=== PATIENT | male | born 1965 | race Caucasian/White ===

== ENCOUNTER → 2019-02-21 | Outpatient (CLI) | payer OTHER ==
[~2019-02-21] MED LIST: IOPAMIDOL 370 MG/ML 200 ML INFUS..BTL INJ ONE; SODIUM CHLORIDE 0.9% 100 ML 100 ML ONE
[2019-02-21 09:00] LABS: CREATININE, SERUM 1.3 mg/dL (0.72-1.25)
--- NOTE | 2019-02-21 10:04 | Diagnostic Imaging Report ---
EXAM: CT Chest with contrast- Pulmonary Embolism Protocol INDICATION: Chest pain, shortness of breath. COMPARISON: None TECHNIQUE: Chest was scanned utilizing a multidetector helical scanner from the lung apex through the level of the diaphragm after administration of IV contrast. Thin section reconstructions were obtained with special concentration on the pulmonary arteries. Coronal and sagittal reformations were obtained. Pulmonary embolism protocol was performed. IV CONTRAST: 100 cc of Isovue 370 RADIATION DOSE: Total DLP: 662.5 mGy*cm Dose modulation, iterative reconstruction, and/or weight based adjustment of the mA/kV was utilized to reduce the radiation dose to as low as reasonably achievable. COMPLICATIONS: None FINDINGS: LINES/ TUBES: None. PULMONARY ARTERIES: Exam is somewhat limited secondary to contrast bolus timing. No filling defect is identified within the pulmonary arteries to the segmental level. Apparent filling defects within the segmental left lower lobe branches are likely artifactual rather than emboli (series 2, images 56 through 59)s. Main pulmonary artery measures 3.1 cm in diameter. LUNGS AND AIRWAYS: The central airways are patent. No evidence of pneumonia or pulmonary edema. Patchy dependent atelectasis. Mild biapical pleural-parenchymal opacity, suggestive of prior granulomatous disease. Calcified granuloma in the left lower lobe. PLEURA: The pleural spaces are clear. HEART AND MEDIASTINUM: The thyroid gland is normal. No mediastinal, hilar or axillary lymphadenopathy. Calcified mediastinal lymph nodes. The heart is normal in size.. There is no pericardial effusion. Small hiatal hernia. UPPER ABDOMEN: Limited contrast-enhanced views of the upper abdomen. Reflux of contrast into the IVC may represent right heart dysfunction. BONES: Mild age indeterminate anterior loss of vertebral body heights at T7, T8, T9. SOFT TISSUES: Unremarkable. IMPRESSION: Somewhat limited examination secondary to contrast bolus timing. No evidence of segmental pulmonary embolism. Apparent filling defects within the segmental left lower lobe branches are likely artifactual rather than emboli. Mild age indeterminate anterior loss of vertebral body heights at T7, T8, T9. Signed by: Dr. Mikey Petersen MD on 02/21/2019 10:01 AM
== END ==
LOC: CT 07:36
PROVIDERS: ATTEND Internal Medicine Interventional Cardiology
DX: R06.02 Shortness of breath (principal); R07.9 Chest pain, unspecified; I26.99 Other pulmonary embolism without acute cor pulmonale
CPT/HCPCS: 36415; 71260; 82565; 84520; Q9967

== ENCOUNTER → 2022-03-25 | Day surgery (SDC) | payer OTHER ==
[~2022-03-25] MED LIST changes: +BENICAR20 MG PO; +GEMFIBROZIL600 MG PO; +GLYCOPYRROLATE INJ 0.2 MG/ML VIAL ONE; +HYOSCYAMINE SULFATE 0.5 MG/ML INJ ONE; +IBUPROFEN200 MG PO; -IOPAMIDOL 370 MG/ML 200 ML INFUS..BTL INJ ONE; +LIDOCAINE HCL 2% LOCAL INJ 5 ML SDV VIAL INJ ONE; +MIDAZOLAM HCL 2 MG/2 ML VIAL ONE; +MULTI-VITAMIN1 EACH PO; +NEXIUM OTC PO; +PROPOFOL IV EMULSION 10 MG/ML 20 ML VIAL ONE; +SIMETHICONE 40 MG/0.6 ML BTL ONE; -SODIUM CHLORIDE 0.9% 100 ML 100 ML ONE; +TESTOSTERO200 MG/1 M INJ
[2022-03-25 13:35] VITALS: BP 121/86
== END | disposition home or self-care (01) ==
LOC: OR 11:04
PROVIDERS: ATTEND Internal Medicine Gastroenterology
DX: D12.0 Benign neoplasm of cecum (principal); K21.9 Gastro-esophageal reflux disease without esophagitis; K64.8 Other hemorrhoids; I10 Essential (primary) hypertension; R06.83 Snoring; Z68.36 Body mass index [BMI] 36.0-36.9, adult; Z86.16 Personal history of COVID-19; E78.00 Pure hypercholesterolemia, unspecified; Z01.810 Encounter for preprocedural cardiovascular examination; Z01.812 Encounter for preprocedural laboratory examination; Z20.822 Contact with and (suspected) exposure to COVID-19
CPT/HCPCS: 0223U; 36415; 45380; 93005; J1980; J2001; J2250; J2704; 45378

== ENCOUNTER 2022-09-16 11:07 | Inpatient (IN) | payer OTHER ==
[~2022-09-16] VITALS: Ht 175.3 cm; Wt 108.9 kg
[~2022-09-16 11:07] MED LIST changes: -GLYCOPYRROLATE INJ 0.2 MG/ML VIAL ONE; -HYOSCYAMINE SULFATE 0.5 MG/ML INJ ONE; -LIDOCAINE HCL 2% LOCAL INJ 5 ML SDV VIAL INJ ONE; -MIDAZOLAM HCL 2 MG/2 ML VIAL ONE; -PROPOFOL IV EMULSION 10 MG/ML 20 ML VIAL ONE; -SIMETHICONE 40 MG/0.6 ML BTL ONE
[2022-09-16] MEDS ORDERED: DESFLURANE 240 ML BTL INH ONE (12:37)
[2022-09-16] MEDS ORDERED: LIDOCAINE HCL 2% LOCAL INJ 5 ML SDV VIAL INJ ONE (12:37)
[2022-09-16] MEDS ORDERED: SUCCINYLCHOLINE CHLORIDE 20 MG/ML 10ML VIAL ONE (12:37)
[2022-09-16] MEDS ORDERED: PROPOFOL IV EMULSION 10 MG/ML 20 ML VIAL ONE (12:37)
[2022-09-16] MEDS ORDERED: ROCURONIUM BROMIDE 10 MG/ML 5ML VIAL IV ONE (12:37)
[2022-09-16] MEDS ORDERED: KETOROLAC TROMETHAMINE 30 MG/ML VIAL ONE (12:37)
[2022-09-16] MEDS ORDERED: POVIDONE IODINE 0.05% 0.05 % ML PO ONE (12:37)
[2022-09-16] MEDS ORDERED: DEXAMETHASONE SOD PHOS INJ 4 MG/ML SDV ONE (12:37)
[2022-09-16] MEDS ORDERED: ONDANSETRON HCL INJ 2MG/ML 2ML 2 MG/ML VIAL ONE (12:37)
[2022-09-16] MEDS ORDERED: METOCLOPRAMIDE HCL 10 MG/2ML VIAL ONE (12:37)
[2022-09-16 13:05] VITALS: BP 135/82
[2022-09-16 13:08] VITALS: BP 135/82
[2022-09-16 13:10] VITALS: BP 135/82
[2022-09-16] MEDS ORDERED: ONDANSETRON HCL INJ 2MG/ML 2ML 2 MG/ML VIAL IV PRN ×2 (14:15→16:00)
[2022-09-16] MEDS ORDERED: SODIUM CHLORIDE 0.45% 1,000 ML IV SCH (14:15)
[2022-09-16] MEDS ORDERED: ACETAMINOPHEN 1000 MG/100 ML IV PRN (15:00)
[2022-09-16] MEDS ORDERED: BUPIVACAINE HCL 0.5% INJ 30 ML VIAL INJ ONE (15:35)
[2022-09-16] MEDS ORDERED: ACETAMINOPHEN 325 MG TAB PO PRN (16:00)
[2022-09-16] MEDS ORDERED: HYDROCODONE/APAP 5MG-325MG TAB PO PRN (16:00)
[2022-09-16] MEDS: SODIUM CHLORIDE 0.9% 1000ML 1,000 ML IV SCH ×2 (16:00→17:03)
[2022-09-16] MEDS ORDERED: SUGAMMADEX SODIUM 200 MG/2 ML VIAL IV ONE (16:04)
[2022-09-16 17:00] VITALS: BP 134/57
[2022-09-16] MEDS ORDERED: Morphine 10mg syringe 10 MG/ML INJ ONE (17:49)
[2022-09-16] MEDS ORDERED: MIDAZOLAM HCL 2 MG/2 ML VIAL ONE (17:49)
[2022-09-16] MEDS ORDERED: FENTANYL CITRATE/PF 100MCG/2 ML INJ ONE (17:49)
[2022-09-16] MEDS ORDERED: ACETAMINOPHEN 1000 MG/100 ML IV SCH (18:00)
[2022-09-16 20:00] VITALS: BP 118/62
[2022-09-16 20:30] VITALS: BP 118/62
[2022-09-17] VITALS: BP 103/57
[2022-09-17] MEDS: SODIUM CHLORIDE 0.9% 1000ML 1,000 ML IV SCH (03:46)
[2022-09-17 04:00] VITALS: BP 101/60
[2022-09-17 07:37] LABS: BASOPHILS % 0.3 % (0.0-1.0); EOSINOPHILS % 0.3 % (0.0-6.0); HEMATOCRIT 43.7 % (38.2-49.6); HEMOGLOBIN 13.9 g/dL (14.0-18.0); LYMPHOCYTES % 21.5 % (18.0-39.1); MEAN CORPUSCULAR HGB CONC 31.8 g/dL (31-35); MEAN CORPUSCULAR VOLUME 97.5 fL (81-99); MONOCYTES # (AUTO) 0.7 (0.2-0.8); NEUTROPHILS # (AUTO) 10.3 (2.1-6.9); NEUTROPHILS % 72.5 % (38.7-80.0); PLATELET COUNT 158 x10e3/uL (140-360); RED BLOOD COUNT 4.48 x10e6/uL (4.3-5.7); RED CELL DISTRIBUTION WIDTH 12.5 % (11.7-14.4)
[2022-09-17 07:49] LABS: ALBUMIN/GLOBULIN RATIO 0.9 (0.8-2.0); ANION GAP 10.7 mmol/L (8-16); CALCIUM 7.8 mg/dL (8.4-10.2); CREATININE, SERUM 1.17 mg/dL (0.72-1.25); POTASSIUM 3.7 mmol/L (3.5-5.1)
[2022-09-17 08:30] VITALS: BP 114/72
[2022-09-17 08:45] VITALS: BP 114/72
[2022-09-17 09:00] VITALS: BP 114/72
== END 2022-09-17 11:09 | disposition home or self-care (01) | DRG 343 ==
LOC: MED/SURG 12:33
PROVIDERS: ADMIT Internal Medicine; ATTEND Internal Medicine
PROC: 0DTJ4ZZ Resection of Appendix, Percutaneous Endoscopic Approach (ICD-10-PCS; principal; 2022-09-16 15:23)
DX: K35.80 Unspecified acute appendicitis (principal); I10 Essential (primary) hypertension; E78.00 Pure hypercholesterolemia, unspecified; E78.1 Pure hyperglyceridemia; K21.9 Gastro-esophageal reflux disease without esophagitis; E66.9 Obesity, unspecified; Z90.89 Acquired absence of other organs; Z83.3 Family history of diabetes mellitus; Z82.49 Family history of ischemic heart disease and other diseases of the circulatory system; Z68.35 Body mass index [BMI] 35.0-35.9, adult; Z79.899 Other long term (current) drug therapy
CPT/HCPCS: 36415; 80053; 80061; 83036; 85025; 88304; 94799; J0330; J1100; J1885; J2001; J2250; J2270; J2405; J2543; J2765; J3010; J7030